=== PATIENT | female | born 1975 | race Caucasian/White ===

== ENCOUNTER 2017-07-02 08:23 | Emergency (ER) | payer BC ==
[2017-07-02 08:53] VITALS: BP 146/93
--- NOTE | 2017-07-02 09:10 | EDM.PDOC ---
ED HPI GENERAL MEDICAL PROBLEM - General Chief Complaint: General Stated Complaint: FELLING ILL FOR PAST TWO DAYS Time Seen by Provider: 07/02/17 09:02 Source of Information: Reports: Patient, RN Notes Reviewed History Limitations: Reports: No Limitations - History of Present Illness INITIAL COMMENTS - FREE TEXT/NARRATIVE: 42-year-old female presents emergency department day complaint of ill feeling this is been going on for little over a week she recently started her diabetic medication of the toes she feels nauseated upset stomach upper respiratory type symptomatology denies any fevers - Related Data Allergies Allergy/AdvReac Type Severity Reaction Status Date / Time tramadol Allergy Nausea Verified 10/02/16 23:17 Home Meds: Home Meds Albuter Inhaler 10/24/15 [History] Liraglutide [Victoza] 1.2 mg SUBCUT DAILY 10/02/16 [History] Dextroamphetamine/Amphetamine [Adderall 10 mg Tablet] 10 mg PO DAILY 07/02/17 [ History] Dextroamphetamine/Amphetamine [Adderall Xr 20 mg Capsule] 25 mg PO DAILY [History] Past Medical History HEENT History: Reports: Allergic Rhinitis, Impaired Vision Other HEENT History: enlarged tonsilis. Other Cardiovascular History: palpitations Respiratory History: Reports: Asthma, Bronchitis, Recurrent Gastrointestinal History: Reports: Fecal Incontinence, Irritable Bowel Syndrome , Other (See Below) Other Gastrointestinal History: liver counts are off, currently under care of Dejah Hackett - lab results pending for hepatitis, ultra sound scheduled for next week. 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 Psychiatric History: Reports: ADD, Depression Endocrine/Metabolic History: Reports: Diabetes, Type II - Infectious Disease History Infectious Disease History: Reports: Chicken Pox - Past Surgical History Female Surgical History: Reports: Section Social & Family History - Tobacco Use Smoking Status *Q: Never Smoker Second Hand Smoke Exposure: No - Caffeine Use Caffeine Use: Reports: None - Recreational Drug Use Recreational Drug Use: No ED ROS GENERAL - Review of Systems Review Of Systems: See Below Constitutional: Denies: Fever, Chills HEENT: Reports: Rhinitis, Throat Pain Respiratory: Reports: No Symptoms Cardiovascular: Reports: No Symptoms GI/Abdominal: Reports: Nausea : Reports: No Symptoms Musculoskeletal: Reports: No Symptoms Skin: Reports: No Symptoms Neurological: Reports: No Symptoms ED EXAM, GENERAL - Physical Exam Exam: See Below Free Text/Narrative:: General: Female, not in any distress, alert and oriented x3 HEENT: head is atraumatic normocephalic, eyes pupils equal round reactive to light, sclera clear no conjunctivitis appreciated. Ears tympanic membranes clear and nugent landmarks and light reflex are present bilaterally canals are clear. Nose no septal deviation, nares are clear, no blood present. Mouth mucosa is moist and pink no erythema or exudate noted in soft palate, tongue is midline uvula is midline, dentition is intact. Neck: Supple no thyromegaly no tracheal deviation. Nodes: Cervical nodes subclavicular nodes nontender no palpable lymphadenopathy noted. Lungs: clear to auscultation bilaterally with symmetrical respirations, no adventitious noise appreciated. CV: Regular rate and rhythm S1 and S2 appreciated no murmurs rubs or gallops noted. Abdomen: Soft, obese, nontender, no palpable masses or organomegaly appreciated , no distention no guarding bowel sounds are present, . Neuro: Cranial nerves II through XII grossly intact Skin: Warm and dry, intact Extremities: No lower extremity edema appreciated, Course - Vital Signs Last Recorded V/S: Last Vital Signs Temp 98.8 F 07/02/17 08:52 Pulse 100 07/02/17 08:52 Resp 20 07/02/17 08:52 BP 146/93 H 07/02/17 08:52 Pulse Ox 98 07/02/17 08:52 - Orders/Labs/Meds Labs: Laboratory Tests 07/02/17 07/02/17 07/02/17 Range/Units 09:06 09:17 09:25 WBC 8.4 (4.5-11.0) K/uL RBC 4.42 (3.30-5.50) M/uL Hgb 10.8 L D (12.0-15.0) g/dL Hct 34.5 L (36.0-48.0) % MCV 78 L (80-98) fL MCH 24 L (27-31) pg MCHC 31 L (32-36) % Plt Count 389 (150-400) K/uL Neut % (Auto) 66 (36-66) % Lymph % (Auto) 22 L (24-44) % [place] % (Auto) 8 H (2-6) % Eos % (Auto) 3 (2-4) % Baso % (Auto) 1 (0-1) % Sodium 139 L (140-148) mmol/L Potassium 3.9 (3.6-5.2) mmol/L Chloride 102 (100-108) mmol/L Carbon Dioxide 29 (21-32) mmol/L Anion Gap 11.9 (5.0-14.0) mmol/L BUN 11 (7-18) mg/dL Creatinine 0.7 (0.6-1.0) mg/dL Est Cr Clr Drug Dosing 92.92 mL/min Estimated GFR (MDRD) > 60 (>60) Glucose 126 H (74-106) mg/dL Calcium 8.9 (8.5-10.1) mg/dL Total Bilirubin 0.5 (0.2-1.0) mg/dL AST 22 D (15-37) U/L ALT 39 D (12-78) U/L Alkaline Phosphatase 82 (46-116) U/L Total Protein 7.7 (6.4-8.2) g/dL Albumin 3.6 (3.4-5.0) g/dL Globulin 4.1 H (2.3-3.5) g/dL Albumin/Globulin Ratio 0.9 L (1.2-2.2) Urine Color Yellow Urine Appearance Cloudy Urine pH 5.0 (4.5-8.0) Ur Specific [place] 1.025 (1.008-1.030) Urine Protein Negative (NEGATIVE) mg/dL Urine Glucose (UA) Normal (NEGATIVE) mg/dL Urine Ketones Negative (NEGATIVE) mg/dL Urine Occult Blood Negative (NEGATIVE) Urine Nitrite Negative (NEGATIVE) Urine Bilirubin Negative (NEGATIVE) Urine Urobilinogen Normal (NORMAL) mg/dL Ur Leukocyte Esterase Negative (NEGATIVE) Urine RBC 0-5 (0-5) Urine WBC 0-5 (0-5) Ur Epithelial Cells Moderate Amorphous Sediment Few Urine Bacteria Few Urine Mucus Moderate Departure - Departure Time of Disposition: 10:33 Disposition: Home, Self-Care 01 Condition: Good Clinical Impression: Medication reaction Qualifiers: Encounter type: initial encounter Qualified Code(s): T88.7XXA - Unspecified adverse effect of drug or medicament, initial encounter - Discharge Information Referrals: Stay,Dejah, ENGINE BOSS [Primary Care Provider] - Forms: ED Department Discharge Additional Instructions: Continue using your medications, please follow-up with your primary care provider in the next 3-5 days for reevaluation, call return to the emergency department worsening of symptoms - Assessment/Plan Plan: Assessment Acuity = acute Site and laterality = ill feeling, nausea, diarrhea, URI symptoms complicated patient known history of diabetes mellitus type 2 Etiology = probably related to recent initiation of victosa Manifestations = none Location of injury = Home Lab values = hemoglobin low 10.8 consistent microchromic anemia acute Plan I did review lab work with her as well as recent starting of the medication she feels her symptoms have improved she's been on this medication now for 12 days she is to follow-up with her primary care for further evaluation as well as workup of anemia Patient was in agreement with the plan all questions were answered, they were instructed to return to the emergency department or call for worsening symptoms. This note was dictated using [employer] voice recognition software please call with any questions.
== END 2017-07-02 11:11 | disposition home or self-care (01) ==
LOC: JP.ED 08:23
DX: T88.7XXA Unspecified adverse effect of drug or medicament, initial encounter (principal); J45.909 Unspecified asthma, uncomplicated; E11.9 Type 2 diabetes mellitus without complications; F32.9 Major depressive disorder, single episode, unspecified; Z79.899 Other long term (current) drug therapy; Z79.84 Long term (current) use of oral hypoglycemic drugs
CPT/HCPCS: 36415; 80053; 81001; 85025; 99284

== ENCOUNTER 2017-08-16 08:49 | Day surgery (SDC) | payer BC, MEDICAID ==
[~2017-08-16 08:49] MED LIST: Dexamethasone 4 MG/ML SDV ONE; Glycopyrrolate 0.2 MG/ML 5 ML MDV ONE; Midazolam 1 MG/ML 2 ML SDV ONE; Neostigmine Methylsulfate 1 MG/ML 5 ML Syringe ONE; Ondansetron 4 MG/2 ML SDV ONE; Povidone-Iodine 10% Soln 118.25 ML Bottle ONE; Propofol 200 MG/20 ML SDV ONE; Rocuronium 50 MG/5 ML Vial ONE; Succinylcholine 200 MG/10 ML MDV ONE; fentaNYL 250 MCG/5 ML SDV ONE
[2017-08-16] MEDS ORDERED: Lactated Ringers 1,000 ML IV SCH (09:15)
[2017-08-16] MEDS ORDERED: Dexamethasone 4 MG/ML SDV IVPUSH ONE (09:15)
[2017-08-16] MEDS ORDERED: ceFAZolin 2 GM in Premix Bag 1 BAG IV ONE (09:15)
[2017-08-16] MEDS ORDERED: Oxymetazoline 0.05% Nasal Spray 15 ML Bottle ONE (09:52)
[2017-08-16] MEDS ORDERED: Dexamethasone 4 MG/ML 5 ML MDV IVPUSH ONE (10:45)
[2017-08-16] MEDS ORDERED: Acetaminophen/HYDROcodone 108-2.5 MG/5 ML Soln 15 ML UD Cup PO PRN (13:00)
--- NOTE | 2017-08-16 13:44 | OR ---
DATE OF PROCEDURE: 08/16/2017 PREOPERATIVE DIAGNOSIS: Chronic cryptic tonsillitis. POSTOPERATIVE DIAGNOSIS: Chronic cryptic tonsillitis. PROCEDURE PERFORMED: Tonsillectomy, primary, over 12 years of age. ANESTHESIA: General. ESTIMATED BLOOD LOSS: Minimal. DESCRIPTION OF PROCEDURE: After a satisfactory general endotracheal anesthesia, a Heath- Jeff mouth gag was placed and soft palate retracted. Minimal adenoid tissue was seen superiorly and this was just suction coagulated. The deeply seated tonsils with generous plica triangularis was removed using Peak plasma cauterization technique with resecting just lateral to the tonsillar fascia, resecting the generous plica triangularis. Bleeders were suction coagulated. The patient had asked me only to take out the uvula as it is causing airway obstruction and there is no edema and the uvula was just otherwise left alone. The patient was rechecked multiple times for bleeding and there were none and extubated and transferred to the recovery room in a stable condition. DISCHARGE MEDICATION: Consists of Hycet for pain and amoxicillin for antibiotic and Zofran for nausea. Ata Tamayo MD /[id number]
[2017-08-16 13:51] VITALS: BP 124/73
== END 2017-08-16 13:51 | disposition home or self-care (01) ==
LOC: JP.SDS 08:49
PROVIDERS: ATTEND Otolaryngology
DX: J35.8 Other chronic diseases of tonsils and adenoids (principal); E11.9 Type 2 diabetes mellitus without complications; F41.1 Generalized anxiety disorder; E66.9 Obesity, unspecified; E88.09 Other disorders of plasma-protein metabolism, not elsewhere classified; F90.9 Attention-deficit hyperactivity disorder, unspecified type; J45.990 Exercise induced bronchospasm; Z88.8 Allergy status to other drugs, medicaments and biological substances; Z87.891 Personal history of nicotine dependence; Z79.899 Other long term (current) drug therapy; Z68.38 Body mass index [BMI] 38.0-38.9, adult
CPT/HCPCS: 42826; 81025; A9270; J0690; J1100; J2250; J2405; J2704; J2710; J3010; J7120; 88304; J0330

== ENCOUNTER 2017-12-25 23:18 | Emergency (ER) | payer BC, MEDICAID ==
[2017-12-25 23:39] VITALS: BP 137/61
--- NOTE | 2017-12-26 00:03 | EDM.PDOC ---
ED HPI GENERAL MEDICAL PROBLEM - General Chief Complaint: Back Pain or Injury Stated Complaint: back hurts not an accident Time Seen by Provider: 12/25/17 23:45 Source of Information: Reports: Patient, RN History Limitations: Reports: No Limitations - History of Present Illness INITIAL COMMENTS - FREE TEXT/NARRATIVE: 42 yo female presents with a couple week hx of upper R back pain. For most of that time she had a small area that felt knotted. Earlier today she had a massage and the knot is now gone, but she has diffuse, less intense pain over the entire R upper back. This is keeping her awake and she is supposed to be to work in 3 hrs. 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: Other (see below) (massage earlier in the day.) Right lower Back Pain Score (Numeric/FACES): 8 - Related Data Allergies Allergy/AdvReac Type Severity Reaction Status Date / Time tramadol Allergy Nausea Verified 12/25/17 23:39 Home Meds: Home Meds Liraglutide [Victoza] 1.2 mg SUBCUT DAILY 10/02/16 [History] Dextroamphetamine/Amphetamine [Adderall 10 mg Tablet] 10 mg PO DAILY 07/02/17 [ History] Dextroamphetamine/Amphetamine [Adderall Xr 20 mg Capsule] 25 mg PO DAILY [History] Ammonium Lactate [Lac-Hydrin 12% Crm] 1 applic TOP BID PRN 08/14/17 [History] Multivitamin with Minerals [Multiple Vitamin] 1 tab PO DAILY 08/14/17 [History] Ondansetron [Zofran ODT] 1 tab PO Q8HR PRN 08/14/17 [History] Albuterol Sulfate [Ventolin Hfa] 2 puff IH Q6HR PRN 08/16/17 [History] PARoxetine HCl [Paroxetine HCl] 10 mg PO DAILY 12/25/17 [History] Past Medical History HEENT History: Reports: Allergic Rhinitis, Impaired Vision Other HEENT History: enlarged tonsilis. Other Cardiovascular History: palpitations Respiratory History: Reports: Asthma, Bronchitis, Recurrent Gastrointestinal History: Reports: Fecal Incontinence, Other (See Below) Other Gastrointestinal History: liver counts are off, currently under care of Dejah Hackett - lab results pending for hepatitis, ultra sound scheduled for next week. 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 Psychiatric History: Reports: ADD, Depression Endocrine/Metabolic History: Reports: Diabetes, Type II Hematologic History: Reports: Anemia - Infectious Disease History Infectious Disease History: Reports: Chicken Pox - Past Surgical History HEENT Surgical History: Reports: None Respiratory Surgical History: Reports: None GI Surgical History: Reports: None Female Surgical History: Reports: Section Endocrine Surgical History: Reports: None Musculoskeletal Surgical History: Reports: None Social & Family History - Family History Family Medical History: Noncontributory - Tobacco Use Smoking Status *Q: Never Smoker Second Hand Smoke Exposure: No - Caffeine Use Caffeine Use: Reports: Soda - Recreational Drug Use Recreational Drug Use: No ED ROS GENERAL - Review of Systems Review Of Systems: See Below Constitutional: Reports: No Symptoms Respiratory: Reports: No Symptoms Cardiovascular: Reports: No Symptoms GI/Abdominal: Reports: No Symptoms : Reports: No Symptoms Musculoskeletal: Reports: Shoulder Pain (posterior R shoulder/upper back pain), Back Pain Skin: Reports: No Symptoms Neurological: Reports: No Symptoms ED EXAM, UPPER BACK/NECK PAIN - Physical Exam Exam: See Below Exam Limited By: No Limitations General Appearance: Alert, WD/WN, No Apparent Distress Eye Exam: Bilateral Eye: Normal Inspection Ears Exam: Normal External Exam, Normal Canal, Hearing Grossly Normal Nose Exam: Normal Inspection, No Blood Throat/Mouth Exam: Normal Inspection, Normal Lips, Normal Oropharynx, Normal Voice, No Airway Compromise Head Exam: Atraumatic, Normocephalic Neck Exam: Non-Tender, Full Range of Motion, Normal Alignment, Normal Inspection Cardiovascular/Respiratory: Regular Rate, Rhythm Back Exam: Other (Tenderness in the distribution of the R trapezius muscle. ). No: CVA Tenderness (R), CVA Tenderness (L), Vertebral Tenderness Extremities: Normal Inspection, Normal Range of Motion, Non-Tender Neurologic: internet marketing assistant II-XII nml As Tested, No Motor/Sensory Deficits, Alert, Normal Mood/Affect, Oriented x 3 Psychiatric: Normal Affect, Normal Mood Skin Exam: Normal Color, Warm/Dry Course - Vital Signs Last Recorded V/S: Last Vital Signs Temp 36.3 C 12/25/17 23:36 Pulse 82 12/25/17 23:36 Resp 14 12/25/17 23:36 BP 137/61 12/25/17 23:36 Pulse Ox 98 12/25/17 23:36 Departure - Departure Time of Disposition: 00:04 Disposition: Home, Self-Care 01 Condition: Good Clinical Impression: Trapezius muscle spasm - Discharge Information Referrals: Kev Kurtz NP [Primary Care Provider] - Forms: ED Department Discharge, ED Return to Work/School Form Additional Instructions: Take ibuprofen 400 mg every 6 hrs with food. Apply moist heat to area. Take Flexeril as directed. Recheck with your provider as needed.
== END 2017-12-26 00:07 | disposition home or self-care (01) ==
LOC: JP.ED 23:18
DX: M62.830 Muscle spasm of back (principal); E11.9 Type 2 diabetes mellitus without complications; Z88.5 Allergy status to narcotic agent; Z79.899 Other long term (current) drug therapy
CPT/HCPCS: 99283

== ENCOUNTER 2018-04-14 21:33 | Emergency (ER) | payer BC, MEDICAID ==
[2018-04-14 21:48] VITALS: BP 126/71
--- NOTE | 2018-04-14 22:24 | EDM.PDOC ---
ED HPI GENERAL MEDICAL PROBLEM - General Chief Complaint: General Stated Complaint: HANGNAIL ON FINGER Time Seen by Provider: 04/14/18 22:03 Source of Information: Reports: Patient History Limitations: Reports: No Limitations - History of Present Illness INITIAL COMMENTS - FREE TEXT/NARRATIVE: This lady tried to pull a hangnail from her right middle finger 1 week ago. It is now swollen and red. She's worried about yeast infections. She has diabetes. Right 3-Middle finger Pain Score (Numeric/FACES): 7 - Related Data Allergies Allergy/AdvReac Type Severity Reaction Status Date / Time tramadol Allergy Nausea Verified 04/14/18 21:48 Home Meds: Home Meds Liraglutide [Victoza] 1.2 mg SUBCUT DAILY 10/02/16 [History] Dextroamphetamine/Amphetamine [Adderall Xr 20 mg Capsule] 25 mg PO DAILY [History] Ammonium Lactate [Lac-Hydrin 12% Crm] 1 applic TOP BID PRN 08/14/17 [History] Multivitamin with Minerals [Multiple Vitamin] 1 tab PO DAILY 08/14/17 [History] Ondansetron [Zofran ODT] 1 tab PO Q8HR PRN 08/14/17 [History] Albuterol Sulfate [Ventolin Hfa] 2 puff IH Q6HR PRN 08/16/17 [History] Dextroamphetamine/Amphetamine [Adderall Xr 15 mg Capsule] 1 tab PO DAILY [History] Past Medical History HEENT History: Reports: Allergic Rhinitis, Impaired Vision Other HEENT History: enlarged tonsilis. Other Cardiovascular History: palpitations Respiratory History: Reports: Asthma, Bronchitis, Recurrent Gastrointestinal History: Reports: Fecal Incontinence, Other (See Below) Other Gastrointestinal History: liver counts are off, currently under care of Dejah Hackett - lab results pending for hepatitis, ultra sound scheduled for next week. 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 Psychiatric History: Reports: ADD, Depression Endocrine/Metabolic History: Reports: Diabetes, Type II Hematologic History: Reports: Anemia - Infectious Disease History Infectious Disease History: Reports: Chicken Pox - Past Surgical History HEENT Surgical History: Reports: Adenoidectomy, Tonsillectomy Respiratory Surgical History: Reports: None GI Surgical History: Reports: None Female Surgical History: Reports: Section Endocrine Surgical History: Reports: None Musculoskeletal Surgical History: Reports: None Social & Family History - Family History Family Medical History: Noncontributory - Tobacco Use Smoking Status *Q: Never Smoker - Caffeine Use Caffeine Use: Reports: Coffee, Energy Drinks - Recreational Drug Use Recreational Drug Use: No ED ROS GENERAL - Review of Systems Review Of Systems: ROS reveals no pertinent complaints other than HPI. ED EXAM, GENERAL - Physical Exam Exam: See Below Exam Limited By: No Limitations General Appearance: Alert, WD/WN Extremities: Other (Right middle finger there is early paronychia to thumb side. Not ready for lancing.) Course - Vital Signs Last Recorded V/S: Last Vital Signs Temp 36.6 C 04/14/18 21:51 Pulse 94 04/14/18 21:51 Resp 16 04/14/18 21:51 BP 126/71 04/14/18 21:51 Pulse Ox 98 04/14/18 21:51 Departure - Departure Time of Disposition: 22:21 Disposition: Home, Self-Care 01 Condition: Fair Clinical Impression: Paronychia of finger - Discharge Information Referrals: Kev Kurtz NP [Primary Care Provider] - Forms: ED Department Discharge Additional Instructions: Take cephalexin 500 mg 4 times daily for 5-7 days. The infection may resolve or it may need to be lanced in another day or 2. It isn't ready to be lanced tonight. To prevent yeast infections you may douche with 1 tablespoon plain unflavored yogurt in 1 qt water. Eating yogurt will also prevent infections. If you do get an infection then take the Diflucan
== END 2018-04-14 22:46 | disposition home or self-care (01) ==
LOC: JP.ED 21:33
DX: M79.644 Pain in right finger(s) (principal); E11.9 Type 2 diabetes mellitus without complications; J45.909 Unspecified asthma, uncomplicated; Z79.899 Other long term (current) drug therapy; Z88.5 Allergy status to narcotic agent
CPT/HCPCS: 99283

== ENCOUNTER 2020-12-16 00:40 | Emergency (ER) | payer MEDICAID ==
[2020-12-16 01:07] VITALS: BP 135/79; PULSE 111
[2020-12-16] MEDS ORDERED: Phenazopyridine 95 MG Tab PO ONE (01:31)
[2020-12-16] MEDS ORDERED: Nitrofurantoin Monohydrate/Macrocrystalline 100 MG Cap PO ONE (01:31)
--- NOTE | 2020-12-16 01:42 | EDM.PDOC ---
ED HPI GENERAL MEDICAL PROBLEM - General Chief Complaint: Genitourinary Problem Stated Complaint: RIGHT ABD PAIN Time Seen by Provider: 12/16/20 01:25 Source of Information: Reports: Patient, Old Records, RN History Limitations: Reports: No Limitations - History of Present Illness INITIAL COMMENTS - FREE TEXT/NARRATIVE: 45 yo female presents with dysuria since Monday with also now some mild cramps. No fever, flank pain or vomiting. Thinks she may have a yeast infection also. Has not been to the clinic. Onset: Gradual Onset Date: 12/13/20 Duration: Day(s):, Getting Worse Location: Reports: Pelvis Quality: Reports: Other (burning) Severity: Moderate Improves with: Reports: None Worsens with: Reports: Other (time) Context: Reports: Other (See HPI) Associated Symptoms: Reports: No Other Symptoms. Denies: Fever/Chills, Nausea/Vomiting Treatments LACE SEWER: Reports: Other (see below) (none) Lower Abdomen Pain Score (Numeric/FACES): 8 - Related Data Allergies Allergy/AdvReac Type Severity Reaction Status Date / Time tramadol Allergy Nausea Verified 12/16/20 00:51 Home Meds: Home Meds Dextroamphetamine/Amphetamine [Adderall Xr 20 mg Capsule] 25 mg PO DAILY 07/02/17 [History] Ammonium Lactate [Lac-Hydrin 12% Crm] 1 applic TOP BID PRN 08/14/17 [History] Multivitamin with Minerals [Multiple Vitamin] 1 tab PO DAILY 08/14/17 [History] Ondansetron [Zofran ODT] 1 tab PO Q8HR PRN 08/14/17 [History] Albuterol Sulfate [Ventolin Hfa] 2 puff IH Q6HR PRN 08/16/17 [History] Dextroamphetamine/Amphetamine [Adderall Xr 15 mg Capsule] 1 tab PO DAILY 04/14/18 [History] Dapagliflozin Propanediol [Farxiga] 5 mg PO DAILY 12/16/20 [History] Dulaglutide [Trulicity] 0.75 mg SQ WEEKLY 12/16/20 [History] Nitrofurantoin Monohyd/M-Cryst [Macrobid 100 mg Capsule] 100 mg PO Q12H #10 capsule 12/16/20 [Rx] Past Medical History HEENT History: Reports: Allergic Rhinitis, Impaired Vision Other HEENT History: enlarged tonsilis. Other Cardiovascular History: palpitations Respiratory History: Reports: Asthma, Bronchitis, Recurrent Gastrointestinal History: Reports: Fecal Incontinence, Other (See Below) Other Gastrointestinal History: liver counts are off, currently under care of Dejah Hackett - lab results pending for hepatitis, ultra sound scheduled for next week. 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 Psychiatric History: Reports: ADD, Depression Endocrine/Metabolic History: Reports: Diabetes, Type II Hematologic History: Reports: Anemia - Infectious Disease History Infectious Disease History: Reports: Chicken Pox - Past Surgical History HEENT Surgical History: Reports: Adenoidectomy, Tonsillectomy Respiratory Surgical History: Reports: None GI Surgical History: Reports: None Female Surgical History: Reports: Section Endocrine Surgical History: Reports: None Musculoskeletal Surgical History: Reports: None Social & Family History - Family History Family Medical History: No Pertinent Family History - Tobacco Use Tobacco Use Status *Q: Never Tobacco User - Caffeine Use Caffeine Use: Reports: None - Recreational Drug Use Recreational Drug Use: No ED ROS GENERAL - Review of Systems Review Of Systems: See Below Constitutional: Reports: No Symptoms : Reports: Dysuria, Frequency, Urgency Musculoskeletal: Reports: No Symptoms Skin: Reports: No Symptoms ED EXAM, RENAL/ - Physical Exam Exam: See Below Exam Limited By: No Limitations General Appearance: Alert, WD/WN, No Apparent Distress, Obese Back Exam: No: CVA Tenderness (R), CVA Tenderness (L) Extremities: Normal Inspection Neurological: Alert, Oriented, CN II-XII Intact, Normal Cognition, No Motor/Sensory Deficits Psychiatric: Normal Affect, Normal Mood Skin Exam: Warm, Dry, Intact, Normal Color, No Rash Course - Vital Signs Last Recorded V/S: Last Vital Signs Temp 36.4 C 12/16/20 00:58 Pulse 111 H 12/16/20 00:58 Resp 16 12/16/20 00:58 BP 135/79 12/16/20 00:58 Pulse Ox 97 12/16/20 00:58 - Orders/Labs/Meds Orders: Active Orders 24 hr Category Date Time Status CULTURE URINE [RM] Stat Lab 12/16/20 01:32 Ordered Labs: Laboratory Tests 12/16/20 Range/Units 01:08 Urine Color Yellow (YELLOW) Urine Appearance Cloudy A (CLEAR) Urine pH 6.5 (5.0-8.0) Ur Specific [place] 1.025 (1.008-1.030) Urine Protein 100 H (NEGATIVE) mg/dL Urine Glucose (UA) 500 H (NEGATIVE) mg/dL Urine Ketones Negative (NEGATIVE) mg/dL Urine Occult Blood Moderate H (NEGATIVE) Urine Nitrite Negative (NEGATIVE) Urine Bilirubin Negative (NEGATIVE) Urine Urobilinogen 0.2 (0.2-1.0) EU/dL Ur Leukocyte Esterase Small H (NEGATIVE) Urine RBC 50-75 H (0-5) Urine WBC >100 H (0-5) Ur Epithelial Cells Few Amorphous Sediment Not seen Urine Bacteria Moderate Urine Mucus Not seen Urine Other Meds: Medications Discontinued Medications Generic Name Dose Route Start Last Admin Trade Name Freq PRN Reason Stop Dose Admin Nitrofurantoin Macrocrystals 100 mg 12/16/20 01:31 Nitrofurantoin Monohydrate/Macrocrystalline 100 Mg Cap PO 12/16/20 01:32 ONETIME ONE Phenazopyridine HCl 190 mg 12/16/20 01:31 Phenazopyridine 95 Mg Tab PO 12/16/20 01:32 ONETIME ONE Departure - Departure Time of Disposition: 01:39 Disposition: Home, Self-Care 01 Condition: Good Clinical Impression: Cystitis - Discharge Information *PRESCRIPTION DRUG MONITORING PROGRAM REVIEWED*: Not Applicable *COPY OF PRESCRIPTION DRUG MONITORING REPORT IN PATIENT DWAINE: Not Applicable Prescriptions: Nitrofurantoin Monohyd/M-Cryst [Macrobid 100 mg Capsule] 100 mg PO Q12H #10 capsule Instructions: Urinary Tract Infection, Adult Referrals: Pauline Mendoza DO [Primary Care Provider] - Additional Instructions: Take MacroBid every 12 hrs until gone. Use AZO per package instructions for added relief. Drink more fluids than you have been. If you think you might have a yeast infection, try any one of the following: Nystatin, miconazole, or clotrimazole. Have your primary care provider check on your urine culture results in 2-3 days to confirm that your antibiotic will be effective. Sepsis Event Note (ED) - Evaluation Sepsis Screening Result: No Definite Risk - Focused Exam Vital Signs: Vital Signs Temp Pulse Resp BP Pulse Ox 12/16/20 00:58 36.4 C 111 H 16 135/79 97 - My Orders Last 24 Hours: My Active Orders 12/16/20 01:32 CULTURE URINE [] Stat - Assessment/Plan Last 24 Hours: My Active Orders 12/16/20 01:32 CULTURE URINE [] Stat
== END 2020-12-16 01:51 | disposition home or self-care (01) ==
LOC: JP.ED 00:40
DX: N30.90 Cystitis, unspecified without hematuria (principal); J45.909 Unspecified asthma, uncomplicated; E11.9 Type 2 diabetes mellitus without complications; Z79.899 Other long term (current) drug therapy; Z88.5 Allergy status to narcotic agent
CPT/HCPCS: 81001; 87086; 87088; 87186; 99283; 99284; A9270

== ENCOUNTER → 2023-08-31 | Day surgery (SDC) | payer MEDICAID ==
[~2023-08-31] MED LIST changes: -Dexamethasone 4 MG/ML SDV ONE; -Glycopyrrolate 0.2 MG/ML 5 ML MDV ONE; +Lactated Ringers 1,000 ML IV SCH; -Neostigmine Methylsulfate 1 MG/ML 5 ML Syringe ONE; -Povidone-Iodine 10% Soln 118.25 ML Bottle ONE; -Rocuronium 50 MG/5 ML Vial ONE; -Succinylcholine 200 MG/10 ML MDV ONE; +fentaNYL 100 MCG/2 ML SDV ONE; -fentaNYL 250 MCG/5 ML SDV ONE; +fentaNYL 50 MCG/ML SDV ONE
[2023-08-31 12:07] VITALS: BP 111/58; PULSE 69
== END ==
LOC: JP.SDS 08:14
PROVIDERS: ATTEND Student in an Organized Health Care Education/Training Program
DX: Z12.11 Encounter for screening for malignant neoplasm of colon (principal); K63.5 Polyp of colon; K57.30 Diverticulosis of large intestine without perforation or abscess without bleeding; Z88.5 Allergy status to narcotic agent
CPT/HCPCS: 45378; J2250; J2405; J2704; J3010; J7120

== ENCOUNTER 2023-09-05 07:50 | Day surgery (SDC) | payer MEDICAID ==
[2023-09-05] MEDS ORDERED: Lactated Ringers 1,000 ML IV SCH (08:30)
[2023-09-05] MEDS ORDERED: Dextrose 5%-Lactated Ringers 1,000 ML IV SCH (08:30)
[2023-09-05] MEDS ORDERED: Midazolam 1 MG/ML 2 ML SDV ONE (08:53)
[2023-09-05] MEDS ORDERED: fentaNYL 100 MCG/2 ML SDV ONE (08:53)
[2023-09-05] MEDS ORDERED: Propofol 200 MG/20 ML SDV ONE (08:53)
[2023-09-05 09:51] VITALS: PULSE 66
[2023-09-05 09:56] VITALS: BP 119/61
== END 2023-09-05 10:06 | disposition home or self-care (01) ==
LOC: JP.SDS 07:50
PROVIDERS: ATTEND Family Medicine
DX: Z12.11 Encounter for screening for malignant neoplasm of colon (principal); J45.909 Unspecified asthma, uncomplicated; E11.9 Type 2 diabetes mellitus without complications; K21.9 Gastro-esophageal reflux disease without esophagitis; Z88.8 Allergy status to other drugs, medicaments and biological substances
CPT/HCPCS: 45378; J2250; J2704; J3010; J7121

== ENCOUNTER 2023-11-08 20:20 | Emergency (ER) | payer MEDICAID ==
[2023-11-08 20:31] VITALS: BP 147/93; PULSE 102
== END 2023-11-08 20:52 | disposition home or self-care (01) ==
LOC: JP.ED 20:20
DX: L03.011 Cellulitis of right finger (principal); E11.9 Type 2 diabetes mellitus without complications; Z88.5 Allergy status to narcotic agent; Z79.84 Long term (current) use of oral hypoglycemic drugs
CPT/HCPCS: 99283